=== PATIENT | female | born 1960 | race African-American/Black ===

== ENCOUNTER 2021-12-12 11:47 | Inpatient (IN) | payer OTHER ==
[2021-12-12] MEDS ORDERED: MAG HYDROX/AL HYDROX/SIMETH 30 ML UNIT-DOSE CUP PO PRN (12:09)
[2021-12-12] MEDS ORDERED: ACETAMINOPHEN 325 MG TABLET (FP) PO PRN ×2 (12:09)
[2021-12-12] MEDS ORDERED: cloNIDine HCL 0.1 MG TABLET PO PRN (12:09)
[2021-12-12] MEDS ORDERED: MENTHOL/PHENOL 1 EACH UD MM PRN (12:09)
[2021-12-12] MEDS ORDERED: MAGNESIUM HYDROX 2400MG/30ML ORAL SUSPENSION 30 ML CUP PO PRN (12:09)
[2021-12-12] MEDS ORDERED: ONDANSETRON *ODT* 4 MG TABLET SL PRN (12:09)
[2021-12-12] MEDS ORDERED: MAGNESIUM CITRATE 300 ML BOTTLE PO PRN (12:09)
[2021-12-12] MEDS ORDERED: BISMUTH SUBSALICYLATE 524 MG/30 ML PO PRN (12:09)
[2021-12-12] MEDS ORDERED: LOPERAMIDE HCL 2 MG CAPSULE PO PRN (12:09)
[2021-12-12] MEDS ORDERED: methaDONE HCL 10 MG TABLET (FOR DETOX USE ONLY) PO ONE (13:15)
[2021-12-12 13:55] VITALS: BMI 22.3
[2021-12-12 14:30] LABS: HEMATOCRIT 36.8 % (32.4-45.2); HEMOGLOBIN 12.2 GM/dL (10.7-15.3); MCH 29.8 pg (25.7-33.7); MCHC 33.3 g/dl (32.0-36.0); MEAN CELL VOLUME 89.4 fl (80-96); MEAN PLT VOLUME 8.5 fl (7.5-11.1); PLATELET COUNT 249 10^3/uL (134-434); RBC 4.12 M/mm3 (3.60-5.2); RDW 12.9 % (11.6-15.6)
[2021-12-12 14:39] LABS: ALBUMIN 3.1 g/dl (3.4-5.0); CALCIUM 8.9 mg/dL (8.5-10.1)
[2021-12-12 14:40] LABS: BLOOD UREA NITROGEN 13.7 mg/dL (7-18)
[2021-12-12 14:43] LABS: CREATININE 0.7 mg/dL (0.55-1.3)
[2021-12-12 14:44] LABS: BILIRUBIN,TOTAL 0.5 mg/dL (0.2-1); TOT PROT 6.8 g/dl (6.4-8.2)
[2021-12-12] MEDS ORDERED: methaDONE HCL 10 MG TABLET (FOR DETOX USE ONLY) ONE (15:11)
[2021-12-12] MEDS: METHOCARBAMOL 500 MG TABLET PO PRN (18:05)
[2021-12-12] MEDS: hydrOXYzine PAMOATE 25 MG CAPSULE (FP) PO SCH ×3 (18:05→23:47)
[2021-12-12] MEDS: PRENATAL VITAMINS W/ FOLIC ACID TABLET (FP) PO SCH (18:12)
[2021-12-12] MEDS: NICOTINE 10 MG CARTRIDGE (INHALER) IH PRN (18:37)
[2021-12-12] MEDS: NICOTINE 7 MG/24 HOURS TOPICAL PATCH TD SCH (18:49)
[2021-12-12] MEDS: THIAMINE HCL 100 MG TABLET (FP) PO SCH (23:47)
[2021-12-12] MEDS: MELATONIN 5 MG TABLETS PO SCH (23:47)
[2021-12-13] MEDS: hydrOXYzine PAMOATE 25 MG CAPSULE (FP) PO SCH ×5 (06:38→22:42)
[2021-12-13] MEDS ORDERED: methaDONE HCL 10 MG TABLET (FOR DETOX USE ONLY) ONE (09:49)
[2021-12-13] MEDS: METHOCARBAMOL 500 MG TABLET PO PRN ×2 (10:19→17:21)
[2021-12-13] MEDS: PRENATAL VITAMINS W/ FOLIC ACID TABLET (FP) PO SCH (10:19)
[2021-12-13] MEDS: NICOTINE 7 MG/24 HOURS TOPICAL PATCH TD SCH (10:21)
[2021-12-13] MEDS: amLODIPine BESYLATE 10 MG TABLET (FP) PO SCH (17:20)
[2021-12-13] MEDS: IBUPROFEN 400 MG TABLET (FP) PO PRN ×2 (17:20→22:43)
[2021-12-13] MEDS: diazePAM 5 MG TABLET PO PRN ×2 (17:21→22:42)
[2021-12-13] MEDS: THIAMINE HCL 100 MG TABLET (FP) PO SCH (22:42)
[2021-12-13] MEDS: MELATONIN 5 MG TABLETS PO SCH (22:42)
[2021-12-14] MEDS: hydrOXYzine PAMOATE 25 MG CAPSULE (FP) PO SCH ×5 (06:03→23:05)
[2021-12-14] MEDS ORDERED: methaDONE HCL 10 MG TABLET (FOR DETOX USE ONLY) PO ONE (10:00)
[2021-12-14] MEDS: NICOTINE 7 MG/24 HOURS TOPICAL PATCH TD SCH (10:26)
[2021-12-14] MEDS: amLODIPine BESYLATE 10 MG TABLET (FP) PO SCH (10:26)
[2021-12-14] MEDS: METHOCARBAMOL 500 MG TABLET PO PRN (10:26)
[2021-12-14] MEDS: PRENATAL VITAMINS W/ FOLIC ACID TABLET (FP) PO SCH (10:26)
[2021-12-14] MEDS ORDERED: diazePAM 5 MG TABLET PO PRN (16:05)
[2021-12-14] MEDS: IBUPROFEN 400 MG TABLET (FP) PO PRN (17:42)
[2021-12-14] MEDS: NICOTINE 10 MG CARTRIDGE (INHALER) IH PRN (18:05)
[2021-12-14] MEDS: THIAMINE HCL 100 MG TABLET (FP) PO SCH (23:05)
[2021-12-14] MEDS: MELATONIN 5 MG TABLETS PO SCH (23:05)
[2021-12-15] MEDS: hydrOXYzine PAMOATE 25 MG CAPSULE (FP) PO SCH ×3 (07:05→13:24)
[2021-12-15] MEDS ORDERED: methaDONE HCL 10 MG TABLET (FOR DETOX USE ONLY) ONE (09:04)
[2021-12-15] MEDS: PRENATAL VITAMINS W/ FOLIC ACID TABLET (FP) PO SCH (09:08)
[2021-12-15] MEDS: METHOCARBAMOL 500 MG TABLET PO PRN (09:08)
[2021-12-15] MEDS: amLODIPine BESYLATE 10 MG TABLET (FP) PO SCH (09:08)
[2021-12-15] MEDS: NICOTINE 7 MG/24 HOURS TOPICAL PATCH TD SCH (09:10)
[2021-12-15] MEDS ORDERED: diazePAM 5 MG TABLET PO PRN (10:28)
[2021-12-15 13:24] VITALS: BP 116/71; PULSE 76; TEMP 97.1
[2021-12-16] MEDS ORDERED: methaDONE HCL 10 MG TABLET (FOR DETOX USE ONLY) PO ONE (10:00)
== END 2021-12-15 15:18 | disposition left against medical advice (07) | DRG 770 ==
LOC: YASAS 11:47 → Y6N 15:08
PROVIDERS: ADMIT Allergy & Immunology; ATTEND Allergy & Immunology
PROC: HZ2ZZZZ Detoxification Services for Substance Abuse Treatment (ICD-10-PCS; principal; 2021-12-12)
DX: F11.23 Opioid dependence with withdrawal (principal); F10.20 Alcohol dependence, uncomplicated; F14.20 Cocaine dependence, uncomplicated; F17.210 Nicotine dependence, cigarettes, uncomplicated; F19.282 Other psychoactive substance dependence with psychoactive substance-induced sleep disorder; F19.280 Other psychoactive substance dependence with psychoactive substance-induced anxiety disorder; F34.1 Dysthymic disorder; F41.9 Anxiety disorder, unspecified; I10 Essential (primary) hypertension; M19.031 Primary osteoarthritis, right wrist; M19.032 Primary osteoarthritis, left wrist; M19.021 Primary osteoarthritis, right elbow; M19.022 Primary osteoarthritis, left elbow; Z62.810 Personal history of physical and sexual abuse in childhood; Z91.410 Personal history of adult physical and sexual abuse; Z86.19 Personal history of other infectious and parasitic diseases; Z56.0 Unemployment, unspecified; Z59.00 Homelessness unspecified
CPT/HCPCS: 36415; 80053; 85027; 86593; 86780; 93005; 93010; C9803; J0735; U0003; U0005